=== PATIENT | female | born 1930 | race Caucasian/White ===

== ENCOUNTER 2018-11-05 07:20 | Day surgery (SDC) | payer MEDICARE, OTHER ==
[~2018-11-05 07:20] MED LIST: AMLO10/40 PO; ASPI325EC PO; CARV25 PO; CLOP75 PO; FURO40 PO; LISI20 PO
== END 2018-11-05 23:08 | disposition home or self-care (01) ==
LOC: MOI US 07:20 → MOI MAM 07:30 → MOI US 23:08
PROC: 0HBU3ZX Excision of Left Breast, Percutaneous Approach, Diagnostic (ICD-10-PCS; principal; 2018-11-05)
DX: N60.82 Other benign mammary dysplasias of left breast (principal)
CPT/HCPCS: 19083; 77065; 88305; A4648